=== PATIENT | female | born 1965 | race Caucasian/White ===

== ENCOUNTER 2019-02-27 10:22 | Inpatient (IN) | payer OTHER ==
[2019-02-26 17:36] VITALS: BMI 24.7
[~2019-02-27 10:22] MED LIST: CEFAZOLIN 2 GM in DEXTROSE 5%-WATER - 100 ML IVPB ONE
[2019-02-27] MEDS ORDERED: ceFAZolin SODIUM 1 GM VIAL ONE ×3 (11:06→17:52)
[2019-02-27] MEDS ORDERED: ROCURONIUM BROMIDE 50 MG/5 ML SYRINGE ONE ×2 (12:08→13:48)
[2019-02-27] MEDS ORDERED: MIDAZOLAM HCL 2 MG/2 ML SINGLE DOSE VIAL ONE (12:08)
[2019-02-27] MEDS ORDERED: PROPOFOL 20 ML ONE (12:08)
[2019-02-27] MEDS ORDERED: fentaNYL CITRATE 250 MCG/5 ML VIAL ONE (12:08)
[2019-02-27] MEDS ORDERED: LIDOCAINE 1%-EPI 1:100,000 30 ML MDV IJ ONE (12:14)
[2019-02-27] MEDS ORDERED: BUPIVACAINE HCL/PF 0.5% (5 MG/ML) 30 ML VIAL IJ ONE (12:15)
[2019-02-27] MEDS ORDERED: SCOPOLAMINE HYDROBROMIDE 1 PATCH PATCH.TD72 TD ONE (12:30)
[2019-02-27] MEDS ORDERED: LIDOCAINE HCL/PF 2% SDV 5ML VIAL ONE (12:37)
[2019-02-27] MEDS ORDERED: ceFAZolin SODIUM 1 GM VIAL IVPB ONE (12:59)
[2019-02-27] MEDS ORDERED: GLYCOPYRROLATE 0.2 MG/1 ML VIAL ONE ×4 (13:10→15:45)
[2019-02-27] MEDS ORDERED: ATROPINE SULFATE 1 MG/10 ML DISP.SYRIN ONE ×2 (13:13→15:44)
[2019-02-27] MEDS ORDERED: DEXAMETHASONE SOD PHOSPHATE 4 MG/1 ML VIAL ONE (13:22)
[2019-02-27] MEDS ORDERED: NEOSTIGMINE METHYLSULFATE 0.5 MG/ML - 10 ML MDV ONE (14:47)
[2019-02-27] MEDS ORDERED: KETOROLAC TROMETHAMINE 30 MG/1 ML VIAL ONE (14:47)
[2019-02-27] MEDS ORDERED: ONDANSETRON 4 MG/2 ML VIAL IVPUSH PRN ×2 (15:16→15:19)
[2019-02-27] MEDS ORDERED: PROMETHAZINE HCL 25 MG/1 ML VIAL IVPUSH PRN (15:16)
[2019-02-27] MEDS ORDERED: DOCUSATE SODIUM 100 MG CAPSULE (FP) PO PRN (15:19)
[2019-02-27] MEDS ORDERED: SIMETHICONE 80 MG TAB.CHEW (FP) PO PRN (15:19)
[2019-02-27] MEDS ORDERED: ACETAMINOPHEN 325 MG TABLET (FP) PO PRN (15:19)
[2019-02-27] MEDS ORDERED: ZOLPIDEM TARTRATE 5 MG TABLET PO PRN (15:19)
[2019-02-27] MEDS ORDERED: IBUPROFEN 800 MG/8 ML IJ IVPB PRN (15:19)
[2019-02-27] MEDS ORDERED: BISACODYL 5 MG TABLET.DR (FP) PO ONE (15:19)
[2019-02-27] MEDS ORDERED: PROMETHAZINE HCL 25 MG/1 ML VIAL IVPB PRN (15:32)
[2019-02-27] MEDS ORDERED: ACETAMINOPHEN INJECTION 100 ML IVPB ONE (15:34)
[2019-02-27] MEDS: ACETAMINOPHEN 1000 MG/100 ML VIAL (NON FORMULARY) IVPB PRN (15:35)
--- NOTE | 2019-02-27 15:39 | OP ---
Operative Note - Note: Operative Date: 02/27/19 Pre-Operative Diagnosis: Fibriod uterus and dysmennorhea Operation: Robotic laparoscopic Hysterectomy, Rt oopherectomy, Polypectomy, Bilateral salpingectomy, drainage Left ovarian cyst, excision of enterocele with suspension, cystoscopy Post-Operative Diagnosis: Same as Pre-op Surgeon: Savage De Guzman Buzzle Buffer: Freddy Stauffer Anesthesiologist/SOLID WASTE ENGINEER: Noah Padilla Anesthesia: General Estimated Blood Loss (mls): 50 Operative Report Dictated: Yes
--- NOTE | 2019-02-27 15:43 | SURG ---
Surgery Electronic Publications Specialist Note Electronic Publications Specialist: Freddy Stauffer PA-C Date of Service: 02/27/19 Diagnosis: Fibriod uterus and dysmennorhea Procedure: Robotic laparoscopic Hysterectomy, Rt oopherectomy, Polypectomy, Bilateral salpingectomy, drainage Left ovarian cyst, excision of enterocele with suspension, cystoscopy I was present for the entirety of the operative procedure. For further detail, please refer to operative report. Visit type - Case Type Case Type: Scheduled - Emergency Emergency Visit: No - New patient This patient is new to me today: Yes Date on this admission: 02/27/19 - Critical Care Critical Care patient: No
[2019-02-27] MEDS ORDERED: GLYCOPYRROLATE 0.2 MG/1 ML VIAL IVPB PRN (15:48)
[2019-02-27] MEDS ORDERED: ONDANSETRON 4 MG/2 ML VIAL ONE (15:53)
[2019-02-27] MEDS: LACTATED RINGERS SOLUTION 1,000 ML IV SCH (16:45)
[2019-02-27] MEDS ORDERED: HYDROmorphone HCl 2 MG/ML VIAL ONE (17:34)
[2019-02-27] MEDS: HYDROmorphone HCl 2 MG/ML VIAL IVPB PRN (17:35)
[2019-02-27 18:03] LABS: HEMATOCRIT 34.1 % (32.4-45.2); HEMOGLOBIN 10.9 GM/dL (10.7-15.3); MCH 29.3 pg (25.7-33.7); MCHC 32.1 g/dl (32.0-36.0); MEAN CELL VOLUME 91.2 fl (80-96); PLATELET COUNT 287 K/MM3 (134-434); RBC 3.74 M/mm3 (3.60-5.2); RDW 13.1 % (11.6-15.6); WHITE BLOOD COUNT 14.2 K/mm3 (4.0-10.0)
[2019-02-27] MEDS: CEFAZOLIN 1 GM/D5W 1 GM/50 ML BAG IVPB SCH (18:04)
[2019-02-28] MEDS: CEFAZOLIN 1 GM/D5W 1 GM/50 ML BAG IVPB SCH (03:13)
[2019-02-28] MEDS: LACTATED RINGERS SOLUTION 1,000 ML IV SCH ×2 (03:46→17:11)
[2019-02-28] MEDS: HYDROmorphone HCl 2 MG/ML VIAL IVPB PRN (07:11)
[2019-02-28 07:53] LABS: HEMATOCRIT 28.6 % (32.4-45.2); HEMOGLOBIN 9.6 GM/dL (10.7-15.3); MCH 30.2 pg (25.7-33.7); MCHC 33.4 g/dl (32.0-36.0); MEAN CELL VOLUME 90.4 fl (80-96); MEAN PLT VOLUME 8.1 fl (7.5-11.1); PLATELET COUNT 259 K/MM3 (134-434); RBC 3.17 M/mm3 (3.60-5.2); RDW 13.4 % (11.6-15.6); WHITE BLOOD COUNT 10.3 K/mm3 (4.0-10.0)
--- NOTE | 2019-02-28 09:17 | PN ---
Progress Note (short form) - Note Progress Note: 53yo F s/p Robotic hysterectomy POD1, pt seen and examined at bedside. Pt states that she has yet to get out of bed or void since yesterday. Pt describes some mild abd pain. Denies n/v, fever, chills, cp, sob. Minimal vaginal bleeding. Last Vital Signs Temp Pulse Resp BP Pulse Ox 98.6 F 66 20 115/54 L 100 02/28/19 07:20 02/28/19 07:20 02/28/19 07:20 02/28/19 07:20 02/27/19 19:30 CBC, BMP 02/28/19 06:53 PE Gen: A&O x3 Resp: breathing comfortably Abd: soft, nondistended, mild diffuse tenderness, incisions clean with no erythema or discharge. Ext: no edema. Problem List - Problems (1) S/P abdominal hysterectomy and right salpingo-oophorectomy Assessment/Plan: Plan -emphasized to pt the need to get OOB and ambulate, had pt walk down hallway and attempt to urinate. -will give pt a little more time, to try and urinate, otherwise may have to straight cath/manzo -plan for pt to be discharge home if passes Trial of void Pt seen and examined with Dr. De Guzman Code(s): Z90.710 - ACQUIRED ABSENCE OF BOTH CERVIX AND UTERUS; Z90.721 - ACQUIRED ABSENCE OF OVARIES, UNILATERAL; Z90.79 - ACQUIRED ABSENCE OF OTHER GENITAL ORGAN(S)
[2019-02-28] MEDS: ENOXAPARIN NA (PORCINE) 40 MG/0.4 ML DISP.SYRIN SQ SCH (11:42)
--- NOTE | 2019-02-28 12:51 | PN ---
Progress Note (short form) - Note Progress Note: 53F POD#1 for robotic assisted hysterectomy under [place]. Pt. doing well this afternoon. No anesthetic complications. Continue management per primary team.
--- NOTE | 2019-02-28 14:22 | OP ---
DATE OF OPERATION: DATE OF DICTATION: 02/27/2019 PREOPERATIVE DIAGNOSES: 1. Symptomatic, growing uterine leiomyomata. 2. Dysfunctional uterine bleeding, menorrhagia. 3. Pelvic pain. POSTOPERATIVE DIAGNOSES: 1. Symptomatic, growing uterine leiomyomata. 2. Dysfunctional uterine bleeding, menorrhagia. 3. Pelvic pain. 4. Cervical polyp. 5. Cystic ovaries. 6. Large enterocele. OPERATION: Robotic total hysterectomy, bilateral salpingectomies, right oophorectomy, polypectomy, drainage of left ovary and cyst, excision of enterocele with modified Ramirez Pillai vault suspension, cystoscopy. SURGEON: Marko Masters MD LITIGATION MANAGER: JONNY Hayden ANESTHESIOLOGIST: Noah Padilla MD ANESTHESIA: General. PROCEDURE AND FINDINGS: Under general anesthesia in dorsal lithotomy position, patient was examined. Vulva, vaginal prep was done with Betadine. Jewell catheter was inserted. Medium size VCare was placed in the uterus. Abdomen was prepped and draped for da Adonay hysterectomy. Veress needle was inserted into the peritoneal cavity, and abdomen was insufflated with carbon dioxide. Da Adonay trocar was placed in the peritoneal cavity without any difficulties through intraumbilical, 8 mm. incision. Under direct vision, left lateral trocar was placed at the level of the umbilicus, and the right lateral trocar was placed also at the same level. An additional 5-mm AirSeal trocar was placed slightly above the umbilicus in the midclavicular line on the left. All da Adonay trocars were 8 mm. Robot was activated and docked. Fenestrated bipolar device was placed in arm number 1, and Vessel Sealer Extend was placed in arm number 4. Findings were as follows: Large uterus with multiple myomas compatible with at least 14 weeks of gestation was noted. Both fallopian tubes were within normal limits. Right ovary was multicystic with possible endometriosis and visible damage to the ovarian core. Left ovary looked much better. It had a single, small 2-cm clear cyst. Decision was made to remove the right ovary and preserve the left one after drainage of the cyst. Subsequently, rather massive enterocele was also encountered. On the vaginal approach, cervical polyp about 3 cm size was noted. That was removed before the surgery started and sent as a separate specimen. Dissection started on the right side. Peritoneum was opened alongside the right infundibulopelvic ligament and extended to the round ligament. The area was dissected. Infundibulopelvic ligament was isolated, and ureter was identified, visualized, and left far away from the surgery. Infundibulopelvic ligament was coagulated and divided with Vessel Sealer. Subsequently, round ligament was divided. Anterior and posterior leaves of broad ligament were incised, and part of the bladder was dissected by sharp and blunt dissection of the cervix. Uterine vessel was skeletonized, coagulated, and divided. Cardinal ligaments were divided as well. Attention was then turned to the left side. Mesosalpinx was divided, and tube was completely dissected to be sent lateral as a separate specimen. Round ligament and utero-ovarian ligament on the left side were coagulated and divided. Anterior leaf of broad ligament was incised and connected with the right side incision. Bladder was then completely dissected off the cervix below the ring. Uterine vessels were skeletonized, coagulated, and divided. Cardinal ligaments were subsequently divided, and ring was "palpated" for 360 degrees. Vessel Sealer was removed and replaced with monopolar scissors. Using the scissors in cutting mode, vaginal fornix was entered anteriorly. Incision was done following all around the rim of the green ring. Uterosacral ligaments that were noted to be quite prominent were divided in the process. Uterus was completely freed and then removed from the abdomen transvaginaly. There were some difficulties due to the size of the uterus. Left fallopian tube was removed separately. Pelvis was lavaged and examined. Rather large enterocele and dilated vagina posteriorly were noted. Enterocele was then excised in a triangular fashion and specimen sent for pathology as well. Vault was closed and suspended using 2 V-Lock sutures 9 inches each. Right angle was secured and sewn into the shortened uterosacral ligament. Posterior aspect of vagina was reduced, and right side of the vault was closed with continuous suture. Same procedure was done on the left side achieving excellent suspension of vaginal vault on uterosacral ligament with a modified Ramirez Pillai approach. Closure was excellent, and vault was visibly moved cephalad. [place] were then cut off and removed. Both sutures were tied posteriorly in the cul-de-sac. At that point, robot was undocked. Using laparoscope and suction irrigation device, pelvis was thoroughly lavaged, and hemostasis was noted to be excellent. Gas was allowed to escape from the abdomen, and ports and instruments were withdrawn. All incisions were closed with subcuticular 4-0 Biosyn suture and Dermabond. Cystoscopy was then performed. Jewell was removed. Using suction irrigation device, bladder was filled with 200 mL of saline. Laparoscope with 30-degree angle and 5-mm diameter was then inserted into the bladder, and images were projected onto the screen. The trigone and the dome were intact, and there was no injury to the organ. Both ureteral ostia were observed and seen emanating jets of clear urine. With integrity of the ureters confirmed, the procedure was terminated. Cystoscope was withdrawn, and fresh Jewell catheter was placed in the bladder. Patient was awakened and extubated. She was transferred to the PACU comfortable and stable. There were no complications with the surgery nor with anesthesia. Total blood loss was about 75 mL. MARKO MASTERS MD [id number] MTDD
[2019-02-28] MEDS: ACETAMINOPHEN 1000 MG/100 ML VIAL (NON FORMULARY) IVPB PRN (17:10)
[2019-02-28] MEDS: oxyCODONE HCL 5 MG TABLET PO PRN (22:24)
[2019-03-01] MEDS: oxyCODONE HCL 5 MG TABLET PO PRN (06:52)
[2019-03-01 06:58] VITALS: TEMP 98.5
--- NOTE | 2019-03-01 07:51 | PN ---
Progress Note (short form) - Note Progress Note: POD 2, s/p Robotic laparoscopic Hysterectomy, Rt oopherectomy, Polypectomy, Bilateral salpingectomy, drainage Left ovarian cyst, excision of enterocele with suspension, cystoscopy Pt seen and examined. Reports she is feeling slightly better than yesterday. Pain is controlled with current regimen. Has been oob to restroom/hallways. Voiding without issue. Passing flatus. Scant vaginal bleeding. Denies cp/sob, n/ v/d. Vital Signs Temp 98.5 F 03/01/19 06:00 Pulse 64 03/01/19 06:00 Resp 18 03/01/19 06:00 BP 116/66 03/01/19 06:00 Pulse Ox 98 02/28/19 21:00 Intake & Output 02/28/19 02/28/19 03/01/19 11:59 23:59 11:59 Intake Total 1000 Output Total 250 Balance 1000 -250 Intake: IV 1000 Lactated Ringers Solution 1000 1,000 ml @ 125 mls/hr IV ASDIR KENNA Rx#: [id number] Output: Emesis 250 Other: Voiding Method Toilet # Unmeasured Voids Void 1 1 1 Bowel Movement No CBC, BMP 02/28/19 06:53 Gen: awake, alert, nad Resp: Unlabored Abdo: soft, minimal ttp at incision sites and lower abdomen. No rebound or guarding. incisions c/d/i with dermabond in place, no erythema/drainage. A/P:53 y/o F w/ Fibriod uterus and dysmennorhea now POD 2, s/p Robotic laparoscopic Hysterectomy, Rt oopherectomy, Polypectomy, Bilateral salpingectomy , drainage Left ovarian cyst, excision of enterocele with suspension, cystoscopy Afebrile, VSS Exam benign -Plan for d/c this morning d/w attending Dr De Guzman
[2019-03-01] MEDS: ENOXAPARIN NA (PORCINE) 40 MG/0.4 ML DISP.SYRIN SQ SCH (09:38)
[2019-03-01 11:08] VITALS: BP 120/64; PULSE 72
[2019-03-01] MEDS ORDERED: IBUPROFEN 600 MG TABLET (FP) PO PRN (12:34)
[2019-03-01] MEDS ORDERED: ACETAMINOPHEN 500 MG TABLET (FP) PO PRN (12:35)
[2019-03-01] MEDS ORDERED: oxyCODONE HCL 5 MG TABLET PO PRN (12:37)
--- NOTE | 2019-03-04 17:36 | PATH ---
Surgical Pathology Report Patient Name: [facility]. Rec. #: [id number] /Age/Gender: 1965 (Age: 53) / F Account: [id number] Location: [facility] MED/SURG Taken: 02/27/2019 Received: 02/28/2019 Reported: 03/04/2019 Physicians: Savage De Guzman MD Specimen(s) Received A: CERVICAL POLYP B: LEFT FALLOPIAN TUBE C: UTERUS CERVIX, RIGHT TUBE AND OVARY D: ENTEROCELE Clinical History Submucous leiomyoma of uterus, pelvic perineal pain Final Diagnosis A. CERVICAL POLYP, EXCISION: ENDOCERVICAL POLYP. B. LEFT FALLOPIAN TUBE, SALPINGECTOMY: PORTION OF FALLOPIAN TUBE WITH NO SIGNIFICANT PATHOLOGIC CHANGE. C. UTERUS, CERVIX, RIGHT FALLOPIAN TUBE AND OVARY, HYSTERECTOMY AND RIGHT SALPINGO-OOPHORECTOMY: ENDOCERVICAL POLYP. ADENOMYOSIS. LEIOMYOMA. PROLIFERATIVE ENDOMETRIUM. RIGHT FALLOPIAN TUBE WITH ENDOSALPINGOSIS. RIGHT OVARY WITH CYSTIC FOLLICLE. D. ENTEROCELE, EXCISION: PORTION OF SQUAMOUS MUCOSA AND SUBMUCOSAL FIBROUS TISSUE WITH NO SIGNIFICANT PATHOLOGIC CHANGE. Electronically Signed Sb Benson M.D. Gross Description A. Received in formalin labeled "cervical polyp," is a 2.0 x 1.2 x 0.2 cm forman, polypoid portion of soft tissue. The specimen is submitted in toto in one cassette. B. Received in formalin labeled "left fallopian tube," is a 4 cm in length fimbriated fallopian tube. The outer surface is forman franco and smooth. Sectioning reveals unremarkable lumen. Data Migration Lead sections are submitted in 2 cassettes as follows: 1-fimbria; 2-cross sections of fallopian tube. C. Received in formalin labeled "uterus, cervix, right tube and ovary," is a 240 g uterus with an attached cervix and an attached right fallopian tube and right ovary. The specimen measures 11 cm from superior to inferior, 7.5 cm from left to right and 6.0 cm from anterior to posterior. The serosa is forman-pink and smooth. The attached cervix measures 3 cm in length and averages 3 cm in diameter. The ectocervix is forman, smooth and glistening. The endocervix displays a 1.2 x 0.7 cm polypoid lesion at the 6:00 aspect. The endometrial cavity measures 6.5 cm in length and 4 cm cornu to cornu. The endometrium is forman-red and measures up to 0.2 cm in thickness. The myometrium displays a 4.5 cm in greatest dimension intramural nodule on the posterior aspect of the specimen. The cut surface of the nodule is forman and rubbery with whorled architecture. No areas of hemorrhage or necrosis are identified. The remaining myometrium is forman-pink and measures up to 3.8 cm in thickness. The fimbriated right fallopian tube measures 6 cm in length. The outer surface is forman-luna with a 0.7 cm greatest dimension paratubal cyst attached to the fimbria. Cut surface of the fallopian tube reveals an unremarkable lumen. The attached right ovary measures 4.3 x 3.0 x 2.5 cm. The outer surface is forman-yellow, convoluted and smooth with a focal cystic appearance. Sectioning reveals a 3.0 cm in greatest dimension cyst containing serosanguineous fluid. The inner lining of the cyst is smooth. No excrescences are identified. The remaining ovarian parenchyma is forman and unremarkable. Data Migration Lead sections are submitted in 12 cassettes as follows: 1-anterior cervix; 2-posterior cervix with polyp; 1-0-mwbvjsai endomyometrium; 5-5-cvwoymfqx endomyometrium; 8-1-wnpumejasx nodule; 9-right fallopian tube fimbria with paratubal cyst; 10-cross sections of right fallopian tube; 11-right ovarian cyst; 12-additional right ovary. D. Received in formalin labeled "enterocele," is a 2.0 x 1.4 x 1.5 cm forman, irregular portion of fibrous tissue, possibly consistent with an enterocele. The specimen is serially sectioned and entirely submitted in 2 cassettes. 02/28/2019 [facility]02/28/2019
== END 2019-03-01 17:04 | disposition home or self-care (01) | DRG 519 ==
LOC: JASU-SURG 10:22 → JSAMEDAYSX 15:24 → J8W 19:46
PROVIDERS: ADMIT Specialist; ATTEND Specialist
PROC: 0UT7FZZ Resection of Bilateral Fallopian Tubes, Via Natural or Artificial Opening With Percutaneous Endoscopic Assistance (ICD-10-PCS; 2019-02-27)
PROC: 0UT0FZZ Resection of Right Ovary, Via Natural or Artificial Opening With Percutaneous Endoscopic Assistance (ICD-10-PCS; 2019-02-27)
PROC: 8E0W0CZ Robotic Assisted Procedure of Trunk Region, Open Approach (ICD-10-PCS; 2019-02-27)
PROC: 0TJB8ZZ Inspection of Bladder, Via Natural or Artificial Opening Endoscopic (ICD-10-PCS; 2019-02-27)
PROC: 0UQF4ZZ Repair Cul-de-sac, Percutaneous Endoscopic Approach (ICD-10-PCS; 2019-02-27)
PROC: 0U914ZZ Drainage of Left Ovary, Percutaneous Endoscopic Approach (ICD-10-PCS; 2019-02-27)
PROC: 0UT9FZZ Resection of Uterus, Via Natural or Artificial Opening With Percutaneous Endoscopic Assistance (ICD-10-PCS; principal; 2019-02-27 13:06)
DX: D25.9 Leiomyoma of uterus, unspecified (principal); N93.8 Other specified abnormal uterine and vaginal bleeding; N92.0 Excessive and frequent menstruation with regular cycle; R10.2 Pelvic and perineal pain; N84.1 Polyp of cervix uteri; N83.202 Unspecified ovarian cyst, left side; N81.5 Vaginal enterocele
CPT/HCPCS: 36415; 84703; 85027; 88302-TC; 88305-TC; 88307-TC; 94760; J0131